=== PATIENT | female | born 1960 | race Caucasian/White ===

== ENCOUNTER → 2017-12-01 | Outpatient (CLI) | payer OTHER ==
[~2017-12-01] MED LIST: ALBU2.5V5 NEB; ALBU3IS INH; ALBU90OI6 INH; AMLO5 PO; ASPI81CH PO; ATOR40TA PO; AZIT250 PO; AZIT500 PO; Amlodipine Bes2.5 MG PO; B-121000 MC2 PO; BECL40OI INH; BECL80OI INH; BUDE6HFA INH; CALGLU500 PO; CARV25 PO; CARV3.125 PO; CARV6.25 PO; CLARITIN10 MG PO; CYAN1000 PO; CYCL10 PO; Crutch1 EACH MISC; DIAZ10 PO; ERGO400 PO; FISH OIL 1,0001 EAC1 PO; FURO20 PO; GUAI600T33 PO; HYDACE5 PO; HYDR1TAB94 PO; Hair, Skin & N1 EACH PO; LANOXIN125 MCG PO; LASIX; LEVSOD100 PO; LEVSOD50 PO; LEVSOD75 PO; LORA10 PO; LORA10ER PO; LORPSEER24; LOSA25 PO; MAGOXI400 PO; MELA3 PO; METF500C PO; METO25ER PO; MONT10T PO; Midodrine HCl10 MG PO; NITR.4SL SL; Norco 10-325 T1 EACH PO; Omeprazole20 M1 PO; POMEGRANATE250 MG PO; POTCHL10ER PO; POTCHL20ER PO; PRED20 PO; PROM25 PO; ROSU10TA PO; Ranexa1000 MG; SPIR25 PO; Senna Laxative8.6 MG PO; TIOT18 INH; TORSE20 PO; TRAM50 PO; Ventolin/Prove6.7 GM INH
[2017-12-01 18:18] LABS: BASOPHILS ABSOLUTE AUTO 0.05 K/mm3 (0.00-0.23); BASOPHILS PERCENT AUTO 1 % (0-2); EOSINOPHILS ABSOLUTE AUTO 0.05 K/mm3 (0.00-0.68); EOSINOPHILS PERCENT AUTO 1 % (0-6); Hematocrit 37.3 % (33.0-51.0); Hemoglobin 12.4 g/dL (11.5-16.0); IMMATURE GRAN ABSOLUTE AUTO 0.04 K/mm3 (0.00-0.10); IMMATURE GRAN PERCENT AUTO 0 % (0-1); LYMPHOCYTES ABSOLUTE AUTO 1.92 K/mm3 (0.84-5.20); LYMPHOCYTES PERCENT AUTO 19 % (21-46); MONOCYTES ABSOLUTE AUTO 0.59 K/mm3 (0.16-1.47); MONOCYTES PERCENT AUTO 6 % (4-13); Mean Corpuscular HGB 28.1 pg (26.0-34.0); Mean Corpuscular HGB Conc 33.2 g/dL (31.5-36.5); Mean Corpuscular Volume 85 fL (80-100); Mean Platelet Volume 11.4 fL (9.1-12.4); NEUTROPHILS ABSOLUTE AUTO 7.24 K/mm3 (1.96-9.15); NEUTROPHILS PERCENT AUTO 73 % (41-73); Platelet Count 219 K/mm3 (150-400); RDW Coefficient Variation 13.9 % (11.7-14.2); RDW Standard Deviation 42.9 fL (35.1-46.3); Red Blood Cell Count 4.41 M/mm3 (3.80-5.20); White Blood Cell Count 9.89 K/mm3 (4.00-11.30)
[2017-12-01 18:21] LABS: Bun/Creatinine Ratio 12.5 (12.0-20.0); Calcium, Blood 9.8 mg/dL (8.5-10.1); Creatinine, Blood 1.36 mg/dL (0.40-1.00); Potassium, Blood 2.7 mmol/L (3.5-5.5)
== END | disposition home or self-care (01) ==
LOC: LAB EV 18:11
PROVIDERS: Physician Assistant Surgical
DX: R05 Cough (principal)
CPT/HCPCS: 80048; 83880; 85025

== ENCOUNTER 2018-01-23 12:14 | Inpatient (IN) | payer OTHER ==
[~2018-01-23] VITALS: Ht 154.9 cm; Wt 92.0 kg
[~2018-01-23 12:14] MED LIST changes: -ALBU2.5V5 NEB; -AMLO5 PO; -BUDE6HFA INH; -CARV3.125 PO; -CLARITIN10 MG PO; -Hair, Skin & N1 EACH PO; -LORPSEER24; -LOSA25 PO; -METF500C PO; -Midodrine HCl10 MG PO; -NITR.4SL SL; -Omeprazole20 M1 PO; -POMEGRANATE250 MG PO; -ROSU10TA PO; -Senna Laxative8.6 MG PO; -TORSE20 PO
[2018-01-23 12:58] LABS: BASOPHILS ABSOLUTE AUTO 0.04 K/mm3 (0.00-0.23); BASOPHILS PERCENT AUTO 1 % (0-2); EOSINOPHILS ABSOLUTE AUTO 0.06 K/mm3 (0.00-0.68); EOSINOPHILS PERCENT AUTO 1 % (0-6); Hematocrit 38.8 % (33.0-51.0); Hemoglobin 12.7 g/dL (11.5-16.0); IMMATURE GRAN ABSOLUTE AUTO 0.05 K/mm3 (0.00-0.10); IMMATURE GRAN PERCENT AUTO 1 % (0-1); LYMPHOCYTES PERCENT AUTO 29 % (21-46); MONOCYTES ABSOLUTE AUTO 1.03 K/mm3 (0.16-1.47); MONOCYTES PERCENT AUTO 15 % (4-13); Mean Corpuscular HGB 27.7 pg (26.0-34.0); Mean Corpuscular HGB Conc 32.7 g/dL (31.5-36.5); Mean Corpuscular Volume 85 fL (80-100); Mean Platelet Volume 11.3 fL (9.1-12.4); NEUTROPHILS ABSOLUTE AUTO 3.84 K/mm3 (1.96-9.15); NEUTROPHILS PERCENT AUTO 55 % (41-73); Platelet Count 179 K/mm3 (150-400); RDW Standard Deviation 43.1 fL (35.1-46.3); Red Blood Cell Count 4.58 M/mm3 (3.80-5.20); White Blood Cell Count 7.02 K/mm3 (4.00-11.30)
[2018-01-23 13:22] LABS: Alanine Aminotransfer (ALT/SGP 36 U/L (12-78); Albumin, Blood 3.5 g/dL (3.4-5.0); Albumin/Globulin Ratio 0.8 (0.8-1.8); Alk Phos 109 U/L (50-136); Anion Gap 6 mmol/L (6-16); Aspartate Aminotrans (AST/SGOT 34 U/L (12-37); Bilirubin, Total 0.5 mg/dL (0.1-1.0); Blood Urea Nitrogen 15 mg/dL (8-24); Bun/Creatinine Ratio 15.4 (12.0-20.0); CO2, Blood 31 mmol/L (21-32); Calcium, Blood 9.3 mg/dL (8.5-10.1); Chloride, Blood 100 mmol/L (98-108); Creatinine, Blood 0.97 mg/dL (0.40-1.00); Globulin, Blood 4.6 g/dL (2.2-4.0); Glomerular Filtration Rate >60 (60-); Glucose, Blood 104 mg/dL (70-99); Potassium, Blood 3.3 mmol/L (3.5-5.5); Sodium, Blood 137 mmol/L (136-145); Total Protein, Blood 8.1 g/dL (6.4-8.2); Troponin I <0.015 ng/mL (0.000-0.040)
[2018-01-23] MEDS ORDERED: TORSE20 PO (15:30)
[2018-01-23] MEDS ORDERED: AMLO5 PO (18:02)
[2018-01-23] MEDS ORDERED: METF500C PO (18:25)
[2018-01-24 06:01] LABS: Calcium, Blood 9.4 mg/dL (8.5-10.1); Creatinine, Blood 1.06 mg/dL (0.40-1.00); Potassium, Blood 3.2 mmol/L (3.5-5.5)
[2018-01-28 05:20] LABS: Hematocrit 33.9 % (33.0-51.0); Hemoglobin 10.8 g/dL (11.5-16.0); Mean Corpuscular HGB 27.1 pg (26.0-34.0); Mean Corpuscular HGB Conc 31.9 g/dL (31.5-36.5); Mean Corpuscular Volume 85 fL (80-100); Mean Platelet Volume 12.2 fL (9.1-12.4); Platelet Count 128 K/mm3 (150-400); RDW Coefficient Variation 14.1 % (11.7-14.2); Red Blood Cell Count 3.98 M/mm3 (3.80-5.20); White Blood Cell Count 4.66 K/mm3 (4.00-11.30)
[2018-01-28 05:46] LABS: Anion Gap 10 mmol/L (6-16); Blood Urea Nitrogen 17 mg/dL (8-24); Bun/Creatinine Ratio 18.4 (12.0-20.0); CO2, Blood 28 mmol/L (21-32); Calcium, Blood 8.7 mg/dL (8.5-10.1); Chloride, Blood 97 mmol/L (98-108); Creatinine, Blood 0.92 mg/dL (0.40-1.00); Glomerular Filtration Rate >60 (60-); Glucose, Blood 105 mg/dL (70-99); Potassium, Blood 3.4 mmol/L (3.5-5.5); Sodium, Blood 135 mmol/L (136-145)
[2018-01-28] MEDS ORDERED: Midodrine HCl10 MG PO (13:54)
[2018-03-23] MEDS ORDERED: Omeprazole20 M1 PO (20:38)
== END 2018-01-28 14:46 | disposition home or self-care (01) | DRG 291 ==
LOC: ER 12:14 → MEDS 12:15 → ENPENDDIS 01-28 14:00 → MEDS 01-28 14:46
PROVIDERS: Emergency Medicine; Family Medicine; Hospitalist
PROC: 3E0234Z Introduction of Serum, Toxoid and Vaccine into Muscle, Percutaneous Approach (ICD-10-PCS; principal; 2018-01-28)
DX: I11.0 Hypertensive heart disease with heart failure (principal); J96.01 Acute respiratory failure with hypoxia; C85.90 Non-Hodgkin lymphoma, unspecified, unspecified site; I50.43 Acute on chronic combined systolic (congestive) and diastolic (congestive) heart failure; I42.5 Other restrictive cardiomyopathy; E78.5 Hyperlipidemia, unspecified; E03.9 Hypothyroidism, unspecified; J06.9 Acute upper respiratory infection, unspecified; J44.9 Chronic obstructive pulmonary disease, unspecified; E11.42 Type 2 diabetes mellitus with diabetic polyneuropathy; M19.90 Unspecified osteoarthritis, unspecified site; Z23 Encounter for immunization
CPT/HCPCS: 36415; 71046; 80048; 80053; 82947; 83880; 84484; 85025; 85027; 93005; 93010; 93306; 94640; 94760; 96374; 96376; 99285; J1650; J1940

== ENCOUNTER 2018-03-23 20:09 | Emergency (ER) | payer OTHER ==
[~2018-03-23] VITALS: Ht 152.4 cm; Wt 89.4 kg
[~2018-03-23 20:09] MED LIST changes: +AMLO5 PO; +METF500 PO; +Midodrine HCl10 MG PO; +TORSE20 PO
[2018-03-23 20:36] LABS: BASOPHILS ABSOLUTE AUTO 0.06 K/mm3 (0.00-0.23); BASOPHILS PERCENT AUTO 1 % (0-2); EOSINOPHILS ABSOLUTE AUTO 0.11 K/mm3 (0.00-0.68); EOSINOPHILS PERCENT AUTO 1 % (0-6); Hematocrit 38.7 % (33.0-51.0); IMMATURE GRAN ABSOLUTE AUTO 0.08 K/mm3 (0.00-0.10); IMMATURE GRAN PERCENT AUTO 1 % (0-1); LYMPHOCYTES ABSOLUTE AUTO 3.32 K/mm3 (0.84-5.20); LYMPHOCYTES PERCENT AUTO 28 % (21-46); MONOCYTES PERCENT AUTO 9 % (4-13); Mean Corpuscular HGB 28.1 pg (26.0-34.0); Mean Corpuscular HGB Conc 33.6 g/dL (31.5-36.5); Mean Corpuscular Volume 84 fL (80-100); Mean Platelet Volume 11.7 fL (9.1-12.4); NEUTROPHILS ABSOLUTE AUTO 7.13 K/mm3 (1.96-9.15); NEUTROPHILS PERCENT AUTO 61 % (41-73); Platelet Count 232 K/mm3 (150-400); RDW Coefficient Variation 13.5 % (11.7-14.2); RDW Standard Deviation 41.2 fL (35.1-46.3); Red Blood Cell Count 4.62 M/mm3 (3.80-5.20)
[2018-03-23] MEDS ORDERED: Omeprazole20 M1 (20:38)
[2018-03-23] MEDS ORDERED: NITR.4SL SL (20:40)
[2018-03-23] MEDS ORDERED: BUDE6HFA INH (20:42)
[2018-03-23] MEDS ORDERED: LOSA25 PO (20:43)
[2018-03-23] MEDS ORDERED: ROSU10TA PO (20:44)
[2018-03-23] MEDS ORDERED: LORPSEER24 (20:47)
[2018-03-23 20:54] LABS: Alanine Aminotransfer (ALT/SGP 30 U/L (12-78); Albumin, Blood 3.6 g/dL (3.4-5.0); Albumin/Globulin Ratio 0.8 (0.8-1.8); Alk Phos 130 U/L (50-136); Anion Gap 9 mmol/L (6-16); Aspartate Aminotrans (AST/SGOT 31 U/L (12-37); Bilirubin, Total 0.4 mg/dL (0.1-1.0); Blood Urea Nitrogen 25 mg/dL (8-24); CO2, Blood 33 mmol/L (21-32); Calcium, Blood 9.3 mg/dL (8.5-10.1); Chloride, Blood 94 mmol/L (98-108); Creatinine, Blood 0.93 mg/dL (0.40-1.00); Globulin, Blood 4.6 g/dL (2.2-4.0); Glomerular Filtration Rate >60 (60-); Glucose, Blood 186 mg/dL (70-99); Sodium, Blood 136 mmol/L (136-145); Total Protein, Blood 8.2 g/dL (6.4-8.2); Troponin I <0.015 ng/mL (0.000-0.040)
== END 2018-03-23 22:45 | disposition home or self-care (01) ==
LOC: ER 20:09
PROVIDERS: Emergency Medicine
DX: R07.89 Other chest pain (principal); I25.2 Old myocardial infarction; K21.9 Gastro-esophageal reflux disease without esophagitis; E03.9 Hypothyroidism, unspecified; I10 Essential (primary) hypertension; Z79.84 Long term (current) use of oral hypoglycemic drugs; Z88.0 Allergy status to penicillin; Z88.8 Allergy status to other drugs, medicaments and biological substances; Z88.5 Allergy status to narcotic agent; Z79.899 Other long term (current) drug therapy; Z79.82 Long term (current) use of aspirin
CPT/HCPCS: 71046; 80053; 83880; 84484; 85025; 93005; 93010; 96374; 99283; J3010

== ENCOUNTER 2018-04-25 19:33 | Inpatient (IN) | payer OTHER ==
[~2018-04-25] VITALS: Ht 152.4 cm; Wt 89.8 kg
[~2018-04-25 19:33] MED LIST changes: +BUDE6HFA INH; +LORPSEER24; +LOSA25 PO; -METF500 PO; +METF500C PO; +NITR.4SL SL; +Omeprazole20 M1 PO; +ROSU10TA PO
[2018-04-25 20:30] LABS: BASOPHILS ABSOLUTE AUTO 0.05 K/mm3 (0.00-0.23); BASOPHILS PERCENT AUTO 0 % (0-2); EOSINOPHILS ABSOLUTE AUTO 0.13 K/mm3 (0.00-0.68); EOSINOPHILS PERCENT AUTO 1 % (0-6); Hematocrit 37.2 % (33.0-51.0); Hemoglobin 12.1 g/dL (11.5-16.0); IMMATURE GRAN ABSOLUTE AUTO 0.04 K/mm3 (0.00-0.10); IMMATURE GRAN PERCENT AUTO 0 % (0-1); LYMPHOCYTES ABSOLUTE AUTO 2.63 K/mm3 (0.84-5.20); LYMPHOCYTES PERCENT AUTO 23 % (21-46); MONOCYTES ABSOLUTE AUTO 0.98 K/mm3 (0.16-1.47); MONOCYTES PERCENT AUTO 9 % (4-13); Mean Corpuscular HGB 27.9 pg (26.0-34.0); Mean Corpuscular HGB Conc 32.5 g/dL (31.5-36.5); Mean Corpuscular Volume 86 fL (80-100); Mean Platelet Volume 11.8 fL (9.1-12.4); NEUTROPHILS PERCENT AUTO 67 % (41-73); Platelet Count 215 K/mm3 (150-400); RDW Coefficient Variation 14.4 % (11.7-14.2); RDW Standard Deviation 44.8 fL (35.1-46.3); Red Blood Cell Count 4.33 M/mm3 (3.80-5.20); White Blood Cell Count 11.43 K/mm3 (4.00-11.30)
[2018-04-25 20:49] LABS: Alanine Aminotransfer (ALT/SGP 36 U/L (12-78); Albumin, Blood 3.6 g/dL (3.4-5.0); Albumin/Globulin Ratio 0.8 (0.8-1.8); Alk Phos 111 U/L (50-136); Anion Gap 9 mmol/L (6-16); Aspartate Aminotrans (AST/SGOT 29 U/L (12-37); Bilirubin, Total 0.6 mg/dL (0.1-1.0); Blood Urea Nitrogen 16 mg/dL (8-24); Bun/Creatinine Ratio 16.4 (12.0-20.0); CO2, Blood 29 mmol/L (21-32); Chloride, Blood 103 mmol/L (98-108); Creatinine, Blood 0.98 mg/dL (0.40-1.00); Globulin, Blood 4.5 g/dL (2.2-4.0); Glomerular Filtration Rate >60 (60-); Glucose, Blood 122 mg/dL (70-99); Potassium, Blood 3.8 mmol/L (3.5-5.5); Sodium, Blood 141 mmol/L (136-145); Total Protein, Blood 8.1 g/dL (6.4-8.2); Troponin I <0.015 ng/mL (0.000-0.040)
[2018-04-25] MEDS ORDERED: ALBU90OI6 INH (21:21)
[2018-04-25] MEDS ORDERED: CLARITIN10 MG PO (21:23)
[2018-04-25] MEDS ORDERED: LEVSOD100 PO (21:24)
[2018-04-25] MEDS ORDERED: Senna Laxative8.6 MG PO (21:30)
[2018-04-26] MEDS ORDERED: ALBU2.5V5 NEB (02:03)
[2018-04-26] MEDS ORDERED: POMEGRANATE250 MG PO (02:05)
[2018-04-26] MEDS ORDERED: TORSE20 PO (02:35)
[2018-04-26] MEDS ORDERED: Hair, Skin & N1 EACH PO (03:03)
[2018-04-26 04:25] LABS: BASOPHILS ABSOLUTE AUTO 0.03 K/mm3 (0.00-0.23); BASOPHILS PERCENT AUTO 0 % (0-2); EOSINOPHILS ABSOLUTE AUTO 0.14 K/mm3 (0.00-0.68); EOSINOPHILS PERCENT AUTO 1 % (0-6); Hematocrit 35.4 % (33.0-51.0); Hemoglobin 11.1 g/dL (11.5-16.0); IMMATURE GRAN ABSOLUTE AUTO 0.06 K/mm3 (0.00-0.10); IMMATURE GRAN PERCENT AUTO 1 % (0-1); LYMPHOCYTES ABSOLUTE AUTO 2.59 K/mm3 (0.84-5.20); LYMPHOCYTES PERCENT AUTO 25 % (21-46); MONOCYTES PERCENT AUTO 9 % (4-13); Mean Corpuscular HGB 27.2 pg (26.0-34.0); Mean Corpuscular HGB Conc 31.4 g/dL (31.5-36.5); Mean Corpuscular Volume 87 fL (80-100); NEUTROPHILS ABSOLUTE AUTO 6.58 K/mm3 (1.96-9.15); NEUTROPHILS PERCENT AUTO 64 % (41-73); Platelet Count 197 K/mm3 (150-400); RDW Coefficient Variation 14.6 % (11.7-14.2); RDW Standard Deviation 46.2 fL (35.1-46.3); Red Blood Cell Count 4.08 M/mm3 (3.80-5.20)
[2018-04-26 04:51] LABS: Anion Gap 7 mmol/L (6-16); Blood Urea Nitrogen 19 mg/dL (8-24); Bun/Creatinine Ratio 18.6 (12.0-20.0); CO2, Blood 32 mmol/L (21-32); Calcium, Blood 8.7 mg/dL (8.5-10.1); Chloride, Blood 102 mmol/L (98-108); Creatinine, Blood 1.02 mg/dL (0.40-1.00); Glomerular Filtration Rate 59 (60-); Glucose, Blood 124 mg/dL (70-99); Potassium, Blood 3.6 mmol/L (3.5-5.5); Sodium, Blood 141 mmol/L (136-145); Troponin I <0.015 ng/mL (0.000-0.040)
[2018-04-27] MEDS ORDERED: METF500C PO (01:03)
[2018-04-27 04:31] LABS: BASOPHILS ABSOLUTE AUTO 0.03 K/mm3 (0.00-0.23); BASOPHILS PERCENT AUTO 0 % (0-2); EOSINOPHILS ABSOLUTE AUTO 0.16 K/mm3 (0.00-0.68); EOSINOPHILS PERCENT AUTO 2 % (0-6); IMMATURE GRAN ABSOLUTE AUTO 0.04 K/mm3 (0.00-0.10); IMMATURE GRAN PERCENT AUTO 1 % (0-1); LYMPHOCYTES ABSOLUTE AUTO 2.02 K/mm3 (0.84-5.20); LYMPHOCYTES PERCENT AUTO 23 % (21-46); MONOCYTES ABSOLUTE AUTO 0.68 K/mm3 (0.16-1.47); MONOCYTES PERCENT AUTO 8 % (4-13); Mean Corpuscular HGB Conc 32.4 g/dL (31.5-36.5); Mean Corpuscular Volume 86 fL (80-100); Mean Platelet Volume 12.8 fL (9.1-12.4); NEUTROPHILS ABSOLUTE AUTO 5.92 K/mm3 (1.96-9.15); NEUTROPHILS PERCENT AUTO 67 % (41-73); Platelet Count 173 K/mm3 (150-400); RDW Coefficient Variation 14.6 % (11.7-14.2); RDW Standard Deviation 46.2 fL (35.1-46.3); Red Blood Cell Count 4.29 M/mm3 (3.80-5.20); White Blood Cell Count 8.85 K/mm3 (4.00-11.30)
[2018-04-27 04:55] LABS: Anion Gap 10 mmol/L (6-16); Blood Urea Nitrogen 18 mg/dL (8-24); Bun/Creatinine Ratio 21.7 (12.0-20.0); CO2, Blood 27 mmol/L (21-32); Calcium, Blood 8.9 mg/dL (8.5-10.1); Chloride, Blood 102 mmol/L (98-108); Creatinine, Blood 0.83 mg/dL (0.40-1.00); Glomerular Filtration Rate >60 (60-); Glucose, Blood 121 mg/dL (70-99); Potassium, Blood 3.6 mmol/L (3.5-5.5); Sodium, Blood 139 mmol/L (136-145); Thyroxine (T4) 9.3 ug/dL (4.8-13.9)
[2018-04-27 04:58] LABS: Triiodothyronine, Free 2.96 pg/mL (2.18-3.98)
[2018-04-27] MEDS ORDERED: CARV3.125 PO (10:08)
== END 2018-04-27 10:33 | disposition home or self-care (01) | DRG 292 ==
LOC: ER 19:33 → PCU 22:53
PROVIDERS: Internal Medicine; Nurse Practitioner Acute Care; Physician Assistant
DX: I50.23 Acute on chronic systolic (congestive) heart failure (principal); C81.90 Hodgkin lymphoma, unspecified, unspecified site; I42.7 Cardiomyopathy due to drug and external agent; Z79.82 Long term (current) use of aspirin; Z79.84 Long term (current) use of oral hypoglycemic drugs; J44.9 Chronic obstructive pulmonary disease, unspecified; I25.2 Old myocardial infarction; E11.42 Type 2 diabetes mellitus with diabetic polyneuropathy; M62.838 Other muscle spasm; E03.9 Hypothyroidism, unspecified; E66.01 Morbid (severe) obesity due to excess calories; Z68.39 Body mass index [BMI] 39.0-39.9, adult; I25.9 Chronic ischemic heart disease, unspecified; I08.1 Rheumatic disorders of both mitral and tricuspid valves; D64.9 Anemia, unspecified; E87.70 Fluid overload, unspecified; Z92.3 Personal history of irradiation; Z92.21 Personal history of antineoplastic chemotherapy; T66.XXXA Radiation sickness, unspecified, initial encounter; I11.0 Hypertensive heart disease with heart failure
CPT/HCPCS: 36415; 71046; 80048; 80053; 82947; 83880; 84436; 84443; 84481; 84484; 85025; 93005; 93010; 93308; 93321; 94640; 94760; 96374; 99285; J1650; J1940

== ENCOUNTER 2018-04-27 00:22 | Day surgery (SDC) | payer OTHER ==
[~2018-04-27 00:22] MED LIST changes: +ALBU2.5V5 NEB; +CLARITIN10 MG PO; +Hair, Skin & N1 EACH PO; +POMEGRANATE250 MG PO; +Senna Laxative8.6 MG PO
[2018-04-27] MEDS ORDERED: METF500C PO (01:03)
[2018-04-27] MEDS ORDERED: CARV3.125 PO (10:08)
== END 2018-04-27 22:51 | disposition home or self-care (01) ==
LOC: ATC 00:22
DX: I11.0 Hypertensive heart disease with heart failure (principal); I50.42 Chronic combined systolic (congestive) and diastolic (congestive) heart failure; E11.9 Type 2 diabetes mellitus without complications; Z85.72 Personal history of non-Hodgkin lymphomas; I25.5 Ischemic cardiomyopathy; I42.9 Cardiomyopathy, unspecified; J45.909 Unspecified asthma, uncomplicated; E78.5 Hyperlipidemia, unspecified; Z79.84 Long term (current) use of oral hypoglycemic drugs

== ENCOUNTER → 2018-09-09 | Outpatient (CLI) | payer OTHER ==
[~2018-09-09] MED LIST changes: +CARV3.125 PO
[2018-09-09 14:47] LABS: BASOPHILS ABSOLUTE AUTO 0.08 K/mm3 (0.00-0.23); BASOPHILS PERCENT AUTO 1 % (0-2); EOSINOPHILS ABSOLUTE AUTO 0.05 K/mm3 (0.00-0.68); EOSINOPHILS PERCENT AUTO 0 % (0-6); Hematocrit 39.8 % (33.0-51.0); Hemoglobin 13.5 g/dL (11.5-16.0); IMMATURE GRAN ABSOLUTE AUTO 0.08 K/mm3 (0.00-0.10); IMMATURE GRAN PERCENT AUTO 1 % (0-1); LYMPHOCYTES ABSOLUTE AUTO 2.74 K/mm3 (0.84-5.20); LYMPHOCYTES PERCENT AUTO 22 % (21-46); MONOCYTES ABSOLUTE AUTO 0.96 K/mm3 (0.16-1.47); MONOCYTES PERCENT AUTO 8 % (4-13); Mean Corpuscular HGB 27.8 pg (26.0-34.0); Mean Corpuscular HGB Conc 33.9 g/dL (31.5-36.5); Mean Corpuscular Volume 82 fL (80-100); Mean Platelet Volume 11.9 fL (9.1-12.4); NEUTROPHILS ABSOLUTE AUTO 8.49 K/mm3 (1.96-9.15); NEUTROPHILS PERCENT AUTO 69 % (41-73); Platelet Count 245 K/mm3 (150-400); RDW Standard Deviation 43.9 fL (35.1-46.3); Red Blood Cell Count 4.86 M/mm3 (3.80-5.20)
[2018-09-09 14:56] LABS: Albumin/Globulin Ratio 0.8 (0.8-1.8); Bilirubin, Total 0.6 mg/dL (0.1-1.0); Bun/Creatinine Ratio 22.9 (12.0-20.0); Calcium, Blood 9.8 mg/dL (8.5-10.1); Creatinine, Blood 1.57 mg/dL (0.40-1.00); Globulin, Blood 4.9 g/dL (2.2-4.0); Potassium, Blood 2.8 mmol/L (3.5-5.5); Total Protein, Blood 8.9 g/dL (6.4-8.2); Uric Acid, Blood 12.3 mg/dL (2.6-6.0)
== END | disposition home or self-care (01) ==
LOC: LAB EV 14:40 → LAB SHORT 14:40
PROVIDERS: General Practice
DX: M79.671 Pain in right foot (principal)
CPT/HCPCS: 80053; 84550; 85025; 85651

== ENCOUNTER 2019-02-06 09:23 | Day surgery (SDC) | payer OTHER ==
[2019-02-06 12:19] LABS: Performing Lab VERACYTE; Test Name FNA
== END 2019-02-06 23:14 | disposition home or self-care (01) ==
LOC: US 09:23
PROVIDERS: Family Medicine
DX: E04.1 Nontoxic single thyroid nodule (principal)
CPT/HCPCS: 10005

== ENCOUNTER 2019-12-08 18:55 | Emergency (ER) | payer OTHER ==
[~2019-12-08] VITALS: Ht 152.4 cm; Wt 92.5 kg
[2019-12-08] MEDS ORDERED: METO25ER PO (19:07)
[2019-12-08] MEDS ORDERED: Aspir 8181 MG PO (19:07)
[2019-12-08] MEDS ORDERED: Crestor20 MG PO (19:07)
[2019-12-08] MEDS ORDERED: TORSE20 PO ×2 (19:08→19:09)
[2019-12-08] MEDS ORDERED: MIDO5 PO (19:08)
[2019-12-08] MEDS ORDERED: LANOXIN125 MCG PO (19:08)
[2019-12-08] MEDS ORDERED: METO2.5 PO (19:09)
[2019-12-08] MEDS ORDERED: POTCHL20ER PO (19:09)
[2019-12-08] MEDS ORDERED: SPIR50 PO (19:09)
[2019-12-08] MEDS ORDERED: NITR.4SL SL (19:10)
[2019-12-08] MEDS ORDERED: ALLO100 PO (19:10)
[2019-12-08] MEDS ORDERED: FISH OIL 1,001000 MG PO (19:10)
[2019-12-08] MEDS ORDERED: MONT10T PO (19:11)
[2019-12-08] MEDS ORDERED: MELA3 PO (19:11)
[2019-12-08] MEDS ORDERED: Loratadine10 MG PO (19:11)
[2019-12-08] MEDS ORDERED: POMEGRANATE250 MG PO (19:11)
[2019-12-08] MEDS ORDERED: VITAMIN B122500 MCG PO (19:12)
[2019-12-08] MEDS ORDERED: BUDE6HFA INH (19:12)
[2019-12-08] MEDS ORDERED: MULTIPLE VITAM1 EACH PO (19:13)
[2019-12-08] MEDS ORDERED: METF500 PO (19:13)
[2019-12-08] MEDS ORDERED: MUCINEX D ER 61 EACH (19:13)
[2019-12-08] MEDS ORDERED: SENNA LAXATIVE8.6 MG PO (19:14)
[2019-12-08] MEDS ORDERED: LEVSOD50 PO (19:14)
[2019-12-08] MEDS ORDERED: OMEPRAZOLE20 MG PO (19:14)
[2019-12-08] MEDS ORDERED: CYCL10 PO (19:14)
[2019-12-08] MEDS ORDERED: Norco 5-325 Ta1 EACH PO (19:15)
[2019-12-08] MEDS ORDERED: JARDIANCE10 MG PO (19:15)
[2019-12-08 19:23] LABS: BASOPHILS ABSOLUTE AUTO 0.06 K/mm3 (0.00-0.23); BASOPHILS PERCENT AUTO 1 % (0-2); EOSINOPHILS ABSOLUTE AUTO 0.12 K/mm3 (0.00-0.68); EOSINOPHILS PERCENT AUTO 1 % (0-6); Hematocrit 40.9 % (33.0-51.0); Hemoglobin 13.1 g/dL (11.5-16.0); IMMATURE GRAN ABSOLUTE AUTO 0.06 K/mm3 (0.00-0.10); IMMATURE GRAN PERCENT AUTO 1 % (0-1); LYMPHOCYTES ABSOLUTE AUTO 2.41 K/mm3 (0.84-5.20); LYMPHOCYTES PERCENT AUTO 26 % (21-46); MONOCYTES PERCENT AUTO 9 % (4-13); Mean Corpuscular HGB 27.8 pg (26.0-34.0); Mean Corpuscular Volume 87 fL (80-100); Mean Platelet Volume 11.7 fL (9.1-12.4); NEUTROPHILS ABSOLUTE AUTO 5.74 K/mm3 (1.96-9.15); NEUTROPHILS PERCENT AUTO 62 % (41-73); Platelet Count 214 K/mm3 (150-400); RDW Coefficient Variation 13.8 % (11.7-14.2); RDW Standard Deviation 43.9 fL (35.1-46.3); Red Blood Cell Count 4.72 M/mm3 (3.80-5.20); White Blood Cell Count 9.19 K/mm3 (4.00-11.30)
[2019-12-08 19:38] LABS: Albumin, Blood 3.8 g/dL (3.4-5.0); Albumin/Globulin Ratio 0.9 (0.8-1.8); Bilirubin, Total 0.5 mg/dL (0.1-1.0); Bun/Creatinine Ratio 17.2 (12.0-20.0); Calcium, Blood 9.2 mg/dL (8.5-10.1); Creatinine, Blood 1.16 mg/dL (0.40-1.00); Globulin, Blood 4.3 g/dL (2.2-4.0); Potassium, Blood 3.6 mmol/L (3.5-5.5); Total Protein, Blood 8.1 g/dL (6.4-8.2)
== END 2019-12-08 21:15 | disposition home or self-care (01) ==
LOC: ER 18:55
PROVIDERS: Emergency Medicine
DX: R00.2 Palpitations (principal); J44.9 Chronic obstructive pulmonary disease, unspecified; I25.2 Old myocardial infarction; I50.9 Heart failure, unspecified; Z88.0 Allergy status to penicillin; Z88.8 Allergy status to other drugs, medicaments and biological substances; Z88.5 Allergy status to narcotic agent; Z79.899 Other long term (current) drug therapy; Z79.82 Long term (current) use of aspirin
CPT/HCPCS: 36415; 71046; 80053; 83735; 83880; 84484; 85025; 93005; 93010; 99284-25

== ENCOUNTER → 2020-09-11 | Outpatient (CLI) | payer OTHER ==
[~2020-09-11] MED LIST changes: +ALLO100 PO; +Aspir 8181 MG PO; +Crestor20 MG PO; +FISH OIL 1,001000 MG PO; +JARDIANCE10 MG PO; +Loratadine10 MG PO; +METF500 PO; +METO2.5 PO; +MIDO5 PO; +MUCINEX D ER 61 EACH; +MULTIPLE VITAM1 EACH PO; +Norco 5-325 Ta1 EACH PO; +OMEPRAZOLE20 MG PO; +SENNA LAXATIVE8.6 MG PO; +SPIR50 PO; +VITAMIN B122500 MCG PO
[2020-09-11 14:28] LABS: Creatinine, Urine Random 24.7 mg/dL (27.00-270.00); Protein, Urine Random 26.5 mg/dL (0.0-11.9)
== END | disposition home or self-care (01) ==
LOC: OLS 13:12 → LAB SHORT 13:12
PROVIDERS: Internal Medicine
DX: N18.30 Chronic kidney disease, stage 3 unspecified (principal)
CPT/HCPCS: 82570; 84156